=== PATIENT | female | born 1980 | race Caucasian/White ===

== ENCOUNTER 2017-08-24 16:13 | Emergency (ER) | payer OTHER ==
[~2017-08-24] VITALS: Ht 175.3 cm; Wt 80.0 kg
[~2017-08-24 16:13] MED LIST: TRAM50; Z.0.BCPILL; Z.0.NO CURRENT MEDS
[2017-08-24 16:31] VITALS: BP 124/75; PULSE 92; RESP 14; TEMP 98.4; O2SAT 100
--- NOTE | 2017-08-24 18:26 | PD ---
HPI Chief Complaint: Musculoskeletal Complaint Time Seen by Provider: 18:18 Travel History International Travel<30 days: No Contact w/Intl Traveler<30days: No Traveled to known affect area: No History of Present Illness HPI 37-year-old female presents emergency department with right heel pain for the past week. 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 She denies any specific injury. Pain is localized to the posterior right heel, and is worse with ambulation. Patient has been trying [id number] Tylenol as well as RICE without improvement. Pain is currently 8 out of 10. There is no sign of infection. Patient denies any other symptoms. She is unable to take NSAIDs or aspirin. PFSH Past Medical History Arthritis: No Asthma: Yes Autoimmune Disease: No Anxiety: Yes Heart Rhythm Problems: No High Cholesterol: No Chest Pain: No Congestive Heart Failure: No COPD: No Cerebrovascular Accident: No Diabetes: No Diminished Hearing: No GERD: No Glaucoma: No Headaches: Yes Hepatitis: No Hiatal Hernia: No Hypertension: No Kidney Stones: No Myocardial Infarction: No Renal Failure: No Seizures: No Sleep Apnea: No Thyroid Disease: No Ulcer: No ?: Not LMP: IUD : 4 Para: 1 Miscarriage: 1 : 1 Past Surgical History Abdominal Surgery: Yes AICD: No Appendectomy: Yes Cardiac Surgery: No Cholecystectomy: Yes Ear Surgery: No Endocrine Surgery: No Eye Surgery: No Genitourinary Surgery: No Gynecologic Surgery: Yes (LEAP/CONE BIOPSY C.I.N. 2/MODERATE DYSPLASIA 10/06) Pacemaker: No Thoracic Surgery: No Other Surgery: Yes Social History Alcohol Use: Yes (X1 PER MONTH/2 DRINKS/LAST INTAKE 05/17/06) Tobacco Use: No Substance Use: No Allergies-Medications (Allergen,Severity, Reaction): Coded Allergies: aspirin (Unverified Allergy, Severe, Anaphylaxis, 10/15/16) diclofenac (Unverified Allergy, Severe, REDNESS/HIVES/SOB, 10/15/16) etodolac (Unverified Allergy, Severe, REDNESS/HIVES/SOB, 10/15/16) flurbiprofen (Unverified Allergy, Severe, REDNESS/HIVES/SOB, 10/15/16) ibuprofen (Unverified Allergy, Severe, REDNESS/HIVES/SOB, 10/15/16) indomethacin (Unverified Allergy, Severe, REDNESS/HIVES/SOB, 10/15/16) ketoprofen (Unverified Allergy, Severe, REDNESS/HIVES/SOB, 10/15/16) ketorolac (Unverified Allergy, Severe, HIVES, SOB, "ANAPHYLAXIS", 10/15/16) naproxen (Unverified Allergy, Severe, REDNESS/HIVES/SOB, 10/15/16) oxaprozin (Unverified Allergy, Severe, REDNESS/HIVES/SOB, 10/15/16) Reported Meds & Prescriptions Reported Meds & Active Scripts Active Review of Systems Except as stated in HPI: all other systems reviewed are Neg General / Constitutional: No: Fever Eyes: No: Visual changes HENT: No: Headaches Cardiovascular: No: Chest Pain or Discomfort Respiratory: No: Shortness of Breath Gastrointestinal: No: Abdominal Pain Genitourinary: No: Dysuria Musculoskeletal: Positive: Arthralgias, Pain Skin: No Rash Neurologic: No: Weakness Psychiatric: No: Depression Endocrine: No: Polydipsia Hematologic/Lymphatic: No: Easy Bruising Physical Exam Narrative GENERAL: Patient appears in mild distress. SKIN: Warm and dry. Normal color. Normal turgor. HEAD: Atraumatic. Normocephalic. EYES: Pupils equal and round. No scleral icterus. No injection or drainage. ENT: No nasal bleeding or discharge. Mucous membranes pink and moist. NECK: Trachea midline. No JVD. CARDIOVASCULAR: Regular rate and rhythm. RESPIRATORY: No accessory muscle use. Clear to auscultation. Breath sounds equal bilaterally. MUSCULOSKELETAL: Extremities without clubbing, cyanosis, or edema. No obvious deformities. The heel appears normal. There is tenderness with palpation at the insertion site of the Achilles tendon. There is no obvious deformity or bone. No increased warmth or erythema. NEUROLOGICAL: Awake and alert. No obvious cranial nerve deficits. Motor grossly within normal limits. Five out of 5 muscle strength in the arms and legs. Normal speech. PSYCHIATRIC: Appropriate mood and affect; insight and judgment normal. Data Data Last Documented VS Vital Signs Date Time Temp Pulse Resp B/P (MAP) Pulse Ox O2 Delivery O2 Flow Rate FiO2 08/24/17 16:31 98.4 92 14 124/75 (91) 100 Orders Orders Foot, Heel Only ([id number]) (08/24/17 18:23) Ice/Cold Pack (08/24/17 18:23) Prednisone (Deltasone) (08/24/17 18:30) MDM Medical Decision Making Medical Screen Exam Complete: Yes Emergency Medical Condition: Yes Differential Diagnosis Right heel pain. Achilles tendinitis. Bone spur. Narrative Course Patient is given 40 mg prednisone p.o. X-ray of the right heel is ordered X-ray shows no acute fracture or other finding. Patient will be continued on prednisone 20 mg daily for the next 7 days. Patient is to use heat and ice to the area frequently. Gentle stretching appropriate foot wear is recommended Patient can take Tylenol as needed for pain Patient to follow-up with [employer] if symptoms persist. Diagnosis Primary Impression: Right Achilles tendinitis Patient Instructions: Achilles Tendinitis (ED), Achilles Tendinitis Exercises ( GEN), General Instructions Additional Instructions: X-ray shows no acute fracture or other finding. Patient will be continued on prednisone 20 mg daily for the next 7 days. Patient is to use heat and ice to the area frequently. Gentle stretching appropriate foot wear is recommended Patient can take Tylenol as needed for pain Patient to follow-up with [employer] if symptoms persist. Med/Other Pt SpecificInfo: Prescription(s) given Disposition: 01 DISCHARGE HOME Condition: Stable Dami Coulter Aug 24, 2017 18:26
[2017-08-24] MEDS ORDERED: predniSONE 20 MG TAB PO ONE (18:30)
[2017-08-24] MEDS ORDERED: PRED20 PO (18:51)
--- NOTE | 2017-08-24 18:59 | RADRPT ---
EXAM DATE: 08/24/2017 6:54 PM EDT AGE/SEX: 37 years / Female INDICATIONS: Pain with weight bearing. CLINICAL DATA: This is the patient's initial encounter. Patient reports that signs and symptoms have been present for 2 days and indicates a pain score of 5/10. MEDICAL/SURGICAL HISTORY: None. None. COMPARISON: No prior exams available for comparison. FINDINGS: Bony structures are intact and in normal alignment. Osseous density is normal. Soft tissues are unre markable. No radiopaque foreign bodies seen. CONCLUSION: No acute findings. Electronically signed by: Jace Roa MD 08/24/2017 6:57 PM EDT
[2017-08-24] MEDS ORDERED: NORC5TAB PO (19:40)
== END 2017-08-24 20:00 | disposition home or self-care (01) ==
LOC: NEPD 16:13
DX: M76.61 Achilles tendinitis, right leg (principal); J45.909 Unspecified asthma, uncomplicated; F41.9 Anxiety disorder, unspecified; Z88.6 Allergy status to analgesic agent
CPT/HCPCS: 73650; 99283; J7512; L2114